=== PATIENT | female | born 1970 | race Caucasian/White ===

== ENCOUNTER → 2016-12-08 | Outpatient (CLI) | payer OTHER ==
[2016-08-11 15:15] VITALS: BP 147/97
[~2016-12-08] MED LIST: FLUO10CA7 PO; FLUO20CA8 PO; KETO10TA PO; LANS30CA17 PO; LEVO25TA4 PO; LEVO50TA5 PO; OLAN5TAB9 PO
== END | disposition home or self-care (01) ==
LOC: LAB 09:56
PROVIDERS: ATTEND Urology
DX: N20.0 Calculus of kidney (principal)
CPT/HCPCS: 36415; 84132

== ENCOUNTER → 2017-06-17 | Outpatient (CLI) | payer OTHER ==
[2016-08-11 15:15] VITALS: BP 147/97
[~2017-06-17] MED LIST changes: -LANS30CA17 PO; +LANS30CA66 PO
--- NOTE | 2017-06-17 14:05 | RAD ---
DATE: 06/17/2017 EXAM: DIGITAL SCREEN BILAT W/CAD HISTORY: Screening COMPARISON: 06/15/2016 This study was interpreted with the benefit of Computerized Aided Detection (CAD). FINDINGS: Breast Density: FATTY The Breast Parenchyma is primarily fatty replaced. Breast parenchyma level density A.. There is a possible developing nodule in the upper outer aspect of the right breast. [place] compression imaging is suggested. Depending on the results of diagnostic mammography targeted ultrasound may be advised. The left breast appears unchanged and unremarkable IMPRESSION: Possible developing nodule right breast. Additional imaging suggested as outlined above BI-RADS CATEGORY: 0 INCOMPLETE: NEED ADDITIONAL IMAGING EVAULATION AND/OR PRIOR MAMMOGRAMS FOR COMPARISON RECOMMENDED FOLLOW-UP: ADD ADDITIONAL IMAGING PQRS compliance statement: Patient information was entered into a reminder system with a target due date soon for the next mammogram. Mammography is a sensitive method for finding small breast cancers, but it does not detect them all and is not a substitute for careful clinical examination. A negative mammogram does not negate a clinically suspicious finding and should not result in delay in biopsying a clinically suspicious abnormality. "Our facility is accredited by the [employer] Mammography [employer]."
== END | disposition home or self-care (01) ==
LOC: MAMMO 08:30
PROVIDERS: ATTEND Family Medicine
DX: Z12.31 Encounter for screening mammogram for malignant neoplasm of breast (principal); Z68.41 Body mass index [BMI] 40.0-44.9, adult
CPT/HCPCS: G0202; 77067

== ENCOUNTER → 2017-06-24 | Outpatient (CLI) | payer OTHER ==
[2016-08-11 15:15] VITALS: BP 147/97
--- NOTE | 2017-06-24 09:58 | RAD ---
DATE: June 24, 2017 EXAM: DIGITAL DIAGNOSTIC RT, BREAST RIGHT HISTORY: Further evaluation of nodule seen on screening mammogram dated June 17, 2017. COMPARISON: June 17, 2017. This study was interpreted with the benefit of Computerized Aided Detection (CAD). FINDINGS: Focal digital compression views of the right breast were performed in the CC and MLO projections. A digital 90 degree medial lateral view of the right breast was performed. The previously seen nodular density persists and is located at about the 8:00 position 9 cm from the nipple. Sonography will be performed. RIGHT BREAST SONOGRAPHY: High-resolution sonography of the 7:00 and 9:00 position right breast was performed. At the 9:00 position 9 cm and the nipple, a cyst is seen measuring 5 mm in size and corresponds to the mammographic finding. IMPRESSION: Cyst of the 9:00 position of the right breast. This is a benign finding. Recommend routine screening mammography in one year. BI-RADS CATEGORY: 2 BENIGN FINDING RECOMMENDED FOLLOW-UP: 12M 12 MONTH FOLLOW-UP PQRS compliance statement: Patient information was entered into a reminder system with a target due date June 18, 2018 for the next mammogram. Mammography is a sensitive method for finding small breast cancers, but it does not detect them all and is not a substitute for careful clinical examination. A negative mammogram does not negate a clinically suspicious finding and should not result in delay in biopsying a clinically suspicious abnormality. "Our facility is accredited by the [employer] Mammography [employer]."
== END | disposition home or self-care (01) ==
LOC: MAMMO 08:27
PROVIDERS: ATTEND Family Medicine
DX: N60.01 Solitary cyst of right breast (principal)
CPT/HCPCS: 76641; G0206; 77065

== ENCOUNTER → 2018-06-20 | Outpatient (CLI) | payer OTHER ==
[2016-08-11 15:15] VITALS: BP 147/97
--- NOTE | 2018-06-20 14:43 | RAD ---
DATE: June 20, 2018 EXAM: MAMMO VISHNU SCREENING BILATERAL HISTORY: Screening study. COMPARISON: 2015 and 2017. This study was interpreted with the benefit of Computerized Aided Detection (CAD). 2-D digital mammographic views of both breasts were performed in the CC and MLO projections. 3-D digital tomosynthesis images of both breasts were performed in the CC and MLO projections and reviewed on a computer workstation. FINDINGS: Breast Density: FATTY The breast parenchyma is primarily fatty replaced. Breast parenchyma level density A.. There are no dominant suspicious masses, suspicious microcalcifications or evidence of architectural distortion. Small nodule within the upper outer aspect of the right breast is stable most likely representing a small lymph node. IMPRESSION: No mammographic indicators for malignancy. BI-RADS CATEGORY: 2 BENIGN FINDING RECOMMENDED FOLLOW-UP: 12M 12 MONTH FOLLOW-UP PQRS compliance statement: Patient information was entered into a reminder system with a target due date June 21, 2019 for the next mammogram. Mammography is a sensitive method for finding small breast cancers, but it does not detect them all and is not a substitute for careful clinical examination. A negative mammogram does not negate a clinically suspicious finding and should not result in delay in biopsying a clinically suspicious abnormality. "Our facility is accredited by the [employer] Mammography [employer]." The patient's breast density may affect the ability of mammography to detect breast cancer. There are 4 categories of breast density, A, B, C and D. Breast density A means that most of the breast tissue is replaced with adipose tissue and therefore is not dense. Breast density B means that the breast tissue is mildly dense and scattered. Breast density C means that the breast tissue is heterogeneously dense. Breast density D means that the breast tissue is very dense. Breast densities especially C and D may decrease the sensitivity of mammography to detect breast cancer. Therefore, the patient may benefit from 3-D breast mammography (3D breast tomography) as a part of their screening mammogram. Insurance may or may not pay for this additional imaging. The patient's breast density based on today's mammogram is category A.
== END | disposition home or self-care (01) ==
LOC: MAMMO 07:47
PROVIDERS: ATTEND Family Medicine
DX: Z12.31 Encounter for screening mammogram for malignant neoplasm of breast (principal)
CPT/HCPCS: 77063; 77067

== ENCOUNTER → 2018-10-26 | Outpatient (CLI) | payer OTHER ==
[2016-08-11 15:15] VITALS: BP 147/97
--- NOTE | 2018-10-26 12:56 | RAD ---
Pelvis with right hip, 2 views, 10/26/2018: HISTORY: Hip pain No fracture or dislocation is identified. The hip joint spaces are well-maintained. The periarticular soft tissues are unremarkable. There is partial sacralization of the right transverse process of L5. IMPRESSION: No significant pelvic or right hip abnormality is detected. Electronically signed by: Joshua Brooks MD (10/26/2018 12:53 PM) [facility]
== END | disposition home or self-care (01) ==
LOC: PMG 09:24
PROVIDERS: ATTEND Family Medicine
DX: M25.551 Pain in right hip (principal); M43.26 Fusion of spine, lumbar region
CPT/HCPCS: 73502

== ENCOUNTER → 2019-06-20 | Outpatient (CLI) | payer OTHER ==
[2016-08-11 15:15] VITALS: BP 147/97
--- NOTE | 2019-06-20 17:52 | RAD ---
DATE: 06/20/2019 EXAM: MAMMO VISHNU SCREENING BILATERAL HISTORY: Routine screening COMPARISON: 06/15/2016, 06/17/2017, and 06/20/2018 mammographic exams This study was interpreted with the benefit of Computerized Aided Detection (CAD). Breast Density: SCATTERED The breast parenchyma shows scattered fibroglandular densities. Breast parenchyma level B. FINDINGS: No mass or distortion. No suspicious calcification. IMPRESSION: Stable BI-RADS CATEGORY: 1 NEGATIVE RECOMMENDED FOLLOW-UP: 12M 12 MONTH FOLLOW-UP PQRS compliance statement: Patient information was entered into a reminder system with a target due date for the next mammogram. Mammography is a sensitive method for finding small breast cancers, but it does not detect them all and is not a substitute for careful clinical examination. A negative mammogram does not negate a clinically suspicious finding and should not result in delay in biopsying a clinically suspicious abnormality. "Our facility is accredited by the [employer] Mammography [employer]."
== END | disposition home or self-care (01) ==
LOC: MAMMO 08:20
PROVIDERS: ATTEND Family Medicine
DX: Z12.31 Encounter for screening mammogram for malignant neoplasm of breast (principal)
CPT/HCPCS: 77063; 77067

== ENCOUNTER → 2019-08-31 | Outpatient (CLI) | payer OTHER ==
[2016-08-11 15:15] VITALS: BP 147/97
[~2019-08-31] MED LIST changes: +FLUO10CA14 PO; -FLUO10CA7 PO; +FLUO20CA19 PO; -FLUO20CA8 PO
--- NOTE | 2019-08-31 14:35 | RAD ---
PQRS Compliance Statement: One or more of the following individualized dose reduction techniques were utilized for this examination: 1. Automated exposure control 2. Adjustment of the mA and/or kV according to patient size 3. Use of iterative reconstruction technique CT abdomen/pelvis without contrast 08/31/2019 12:00 AM INDICATION: Hematuria and right lower quadrant pain COMPARISON: CT abdomen/pelvis 08/10/2016 TECHNIQUE: Multiple axial CT images of the abdomen and pelvis were obtained without intravenous contrast. Coronal and sagittal reformats are provided. FINDINGS: Lung bases are clear. Heart size within normal limits. Evaluation of solid abdominal viscera is limited by lack of intravenous contrast. Liver, spleen, bilateral adrenal glands and pancreas are normal in appearance. Gallbladder surgically absent. Bowel is normal in appearance. Appendix is normal. Abdominal aorta is normal in course and caliber. No pathologically enlarged lymph nodes are identified in abdomen and pelvis. There is no free fluid or free intraperitoneal air. Ventral abdominal wall appears intact. No suspicious adnexal mass is identified. Urinary bladder is within normal limits given degree of distention. There is a 2 mm nonobstructing calculus in interpolar right kidney. There is a 10 mm calculus in the right renal pelvis with associated mild right hydronephrosis. There is an additional calculus identified measuring 4 mm in the proximal to mid right ureter. There is a 2 mm nonobstructing calculus in the inferior pole left kidney. There is a 2 mm nonobstructing calculus in interpolar left kidney. No suspicious osseous abnormality is identified. IMPRESSION: 1. There is a 10 mm calculus identified in the right renal pelvis and a 4 mm calculus identified in the proximal to mid right ureter with associated mild right hydroureteronephrosis. Findings are visualized on the pattern data operator radiograph may be followed with serial radiographs as warranted. 2. Nonobstructing bilateral renal calculi are present. Electronically signed by: Archana Morris MD (08/31/2019 2:32 PM) [id number]
== END | disposition home or self-care (01) ==
LOC: PMG 13:51
PROVIDERS: ATTEND Physician Assistant
DX: N13.2 Hydronephrosis with renal and ureteral calculous obstruction (principal)
CPT/HCPCS: 74176

== ENCOUNTER → 2020-06-27 | Outpatient (CLI) | payer OTHER ==
[2016-08-11 15:15] VITALS: BP 147/97
[~2020-06-27] MED LIST changes: -FLUO10CA14 PO; +FLUO10CA15 PO; -FLUO20CA19 PO; +FLUO20CA20 PO
--- NOTE | 2020-07-04 11:19 | RAD ---
DATE: 06/27/2020 1:00 PM EXAM: MAMMO VISHNU SCREENING BILATERAL HISTORY: Screening COMPARISON: 06/20/2019 Bilateral CC and MLO views of the breasts were performed. Bilateral breast tomosynthesis was performed in CC and MLO projections. This study was interpreted with the benefit of Computerized Aided Detection (CAD). FINDINGS: Breast Density: FATTY The Breast Parenchyma is primarily fatty replaced. Breast parenchyma level density A. No suspicious masses, microcalcifications or architectural distortion is present to suggest malignancy in either breast. The visualized axillae are unremarkable. IMPRESSION: No mammographic evidence of malignancy. BI-RADS CATEGORY: 1 NEGATIVE RECOMMENDED FOLLOW-UP: 12M 12 MONTH FOLLOW-UP Annual screening mammography is recommended, unless clinically indicated sooner based on symptoms or change in physical exam. PQRS compliance statement: Patient information was entered into a reminder system with a target due date for the next mammogram. Mammography is a sensitive method for finding small breast cancers, but it does not detect them all and is not a substitute for careful clinical examination. A negative mammogram does not negate a clinically suspicious finding and should not result in delay in biopsying a clinically suspicious abnormality. "Our facility is accredited by the [employer] Mammography Program."
== END ==
LOC: MAMMO 12:50
PROVIDERS: ATTEND Family Medicine
DX: Z12.31 Encounter for screening mammogram for malignant neoplasm of breast (principal)
CPT/HCPCS: 77063; 77067

== ENCOUNTER → 2021-06-29 | Outpatient (CLI) | payer OTHER ==
[2016-08-11 15:15] VITALS: BP 147/97
[~2021-06-29] MED LIST changes: -FLUO10CA15 PO; +FLUO10CA17 PO; -FLUO20CA20 PO; +FLUO20CA22 PO; +OLAN5TAB67 PO; -OLAN5TAB9 PO
--- NOTE | 2021-06-29 17:24 | RAD ---
Bilateral digital screening mammogram to include digital breast tomosynthesis (3-D mammography) 06/29 CLINICAL HISTORY: Screening study. Digital MLO and CC mammograms of both breasts were obtained. Additionally digital breast tomosynthesi s images (3-D mammography) of both breasts in the CC and MLO projections were obtained. Comparison studies are dated 06/27/2020 and 06/20/2018. The breast parenchyma is composed of scattered fibroglandular densities which can obscure a lesion on mammography (breast density B). No spiculated mass is seen. No malignant appearing calcification or area of architectural distortion is noted. Digital breast tomosynthesis images demonstrate no spiculated mass. No malignant appearing calcificat ion is seen. Impression: BI-RADS Category 1: Negative. There is no mammographic evidence of malignancy. Routine y early screening mammography is recommended for follow-up. This examination was reviewed with the aid of computer-aided detection. A mammogram does not have 100% sensitivity and therefore a negative imaging study should not delay fu rther work up of a suspicious abnormality. Patient information is entered into the reminder system with a target due date for the next screening mammogram of 06/29/2022 "Our facility is accredited by the [employer] Mammography Program." Electronically signed by: Mani Otoole MD (06/29/2021 5:21 PM) [id number]
== END ==
LOC: MAMMO 09:42
PROVIDERS: ATTEND Family Medicine
DX: Z12.31 Encounter for screening mammogram for malignant neoplasm of breast (principal)
CPT/HCPCS: 77063; 77067

== ENCOUNTER → 2021-10-27 | Outpatient (CLI) | payer OTHER ==
[2016-08-11 15:15] VITALS: BP 147/97
--- NOTE | 2021-10-27 15:31 | RAD ---
EXAM: ULTRASOUND SOFT TISSUE NECK CLINICAL HISTORY: Left neck lump COMPARISON: None TECHNIQUE: Ultrasound examination of the left neck in the area of concern was performed FINDINGS: In the area of palpable concern, there is a 1.6 x 1.0 x 0.5 cm subcutaneous lymph node with normal mo rphology. No mass or fluid collection. IMPRESSION: Small lymph node in the area of palpable concern, nonspecific. Electronically signed by: Jody Suggs MD (10/27/2021 3:28 PM) [id number]
== END ==
LOC: US 09:58
PROVIDERS: ATTEND Family Medicine
DX: R22.1 Localized swelling, mass and lump, neck (principal)
CPT/HCPCS: 76536